=== PATIENT | female | born 1960 | race Hispanic/Latino ===

== ENCOUNTER 2020-03-06 03:41 | Emergency (ER) | payer SELFPAY ==
[2020-03-06] MEDS ORDERED: diphenhydrAMINE 25 MG CAP PO ONE (03:51)
[2020-03-06] MEDS ORDERED: FAMOTIDINE 20 MG TAB PO ONE (03:51)
[2020-03-06] MEDS ORDERED: dexAMETHasone 20 MG/5 ML VIAL IM ONE (03:51)
[2020-03-06 03:52] VITALS: BP 157/65
--- NOTE | 2020-03-06 04:03 | Emergency Department Report ---
ED General Adult HPI - General Chief complaint: Skin Rash Stated complaint: ALLERGIC REACTION TO MEDS Time Seen by Provider: 03/06/20 03:51 Source: patient Mode of arrival: Ambulatory Limitations: No Limitations - History of Present Illness Initial comments: Patient is a 60-year-old female presents emergency room with complaints of a possible allergic reaction that began a couple hours prior to arrival. Patient states that she is currently on doxycycline for an abscess. She states that she was started on the medication on 02/28/2020. She states that tonight she began having itching to the chest and the neck. She states that she believes she may have a rash. She states that she also has a strange sensation in her throat but denies her throat closing. She denies any facial swelling. She states that she has some mild shortness of breath. She denies any difficulty swallowing. She is tolerating p.o. intake without difficulty. She denies any known medication allergies. She denies any antibiotic allergies that she is aware of. - Related Data Previous Rx's Medication Instructions Recorded Last Taken Type Famotidine [Pepcid] 40 mg PO QHS #10 tablet 03/06/20 Unknown Rx Fluconazole (Nf) [Diflucan TAB] 150 mg PO ONCE #1 tablet 03/06/20 Unknown Rx Prednisone [predniSONE 10 mg 10 mg PO .TAPER #1 tab.ds.pk 03/06/20 Unknown Rx (6-Day Pack, 21 Tabs)] diphenhydrAMINE [Benadryl CAP] 50 mg PO Q8HR PRN #12 capsule 03/06/20 Unknown Rx Allergies Allergy/AdvReac Type Severity Reaction Status Date / Time doxycycline Allergy Rash Verified 03/06/20 04:13 ED Review of Systems ROS: Stated complaint: ALLERGIC REACTION TO MEDS Other details as noted in HPI Comment: All other systems reviewed and negative ED Past Medical Hx - Past Medical History Previous Medical History?: Yes Hx Hypertension: Yes - Surgical History Past Surgical History?: No - Social History Smoking Status: Never Smoker Substance Use Type: None - Medications Home Medications: Home Medications Medication Instructions Recorded Confirmed Last Taken Type Famotidine [Pepcid] 40 mg PO QHS #10 tablet 03/06/20 Unknown Rx Fluconazole (Nf) [Diflucan TAB] 150 mg PO ONCE #1 tablet 03/06/20 Unknown Rx Prednisone [predniSONE 10 mg 10 mg PO .TAPER #1 tab.ds.pk 03/06/20 Unknown Rx (6-Day Pack, 21 Tabs)] diphenhydrAMINE [Benadryl CAP] 50 mg PO Q8HR PRN #12 capsule 03/06/20 Unknown Rx ED Physical Exam - General Limitations: No Limitations General appearance: alert, in no apparent distress - Head Head exam: Present: atraumatic, normocephalic - Eye Eye exam: Present: normal appearance - ENT ENT exam: Present: normal orophraynx, mucous membranes moist, other (no angioedema) - Respiratory Respiratory exam: Present: normal lung sounds bilaterally. Absent: respiratory distress, wheezes, rales, rhonchi, stridor, chest wall tenderness, accessory muscle use, decreased breath sounds, prolonged expiratory - Cardiovascular Cardiovascular Exam: Present: regular rate, normal rhythm, normal heart sounds. 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 Patient states that she is currently on doxycycline for an abscess. She states that she was started on the medication on 02/28/2020. She states that tonight she began having itching to the chest and the neck. She states that she believes she may have a rash. She states that she also has a strange sensation in her throat but denies her throat closing. She denies any facial swelling. She states that she has some mild shortness of breath. She denies any difficulty swallowing. She is tolerating p.o. intake without difficulty. She denies any known medication allergies. She denies any antibiotic allergies that she is aware of. Vitals are stable. On exam no signs of angioedema or anaphylaxis, no signs of significant urticaria, no stridor or wheezing. Patient given dexamethasone IM, Benadryl and Pepcid p.o. Patient was feeling much better and ready to go home, patient was observed in the emergency department without any further complications. No signs of SJS on exam. 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 Patient is already completed a one week course of further antibiotic therapy, is no signs of cellulitis, abscess, infection on exam. Patient is given a prescription for Benadryl, Pepcid, prednisone. Advised patient Please take medication as prescribed. Increase your water intake. Please add doxycycline to your allergy list. Return to emergency room for any new or worsening symptoms. Patient is requesting a prescription for Diflucan due to a yeast infection after completing a course of antibiotics Critical care attestation.: If time is entered above; I have spent that time in minutes in the direct care of this critically ill patient, excluding procedure time. ED Disposition Clinical Impression: Allergic reaction Qualifiers: Encounter type: initial encounter Qualified Code(s): T78.40XA - Allergy, unspecified, initial encounter Disposition: TO HOME OR SELFCARE Is pt being admited?: No Does the pt Need Aspirin: No Condition: Stable Instructions: Allergies, Adult Additional Instructions: Please take medication as prescribed. Increase your water intake. Please add doxycycline to your allergy list. Return to emergency room for any new or worsening symptoms. Prescriptions: Famotidine [Pepcid] 40 mg PO QHS #10 tablet diphenhydrAMINE [Benadryl CAP] 50 mg PO Q8HR PRN #12 capsule PRN Reason: itching Fluconazole (Nf) [Diflucan TAB] 150 mg PO ONCE #1 tablet Prednisone [predniSONE 10 mg (6-Day Pack, 21 Tabs)] 10 mg PO .TAPER #1 tab.ds.pk Referrals: your, primary care doctor [Other] - 2-3 Days Time of Disposition: 05:07 Print Language: MOLDOVAN
== END 2020-03-06 05:32 | disposition home or self-care (01) ==
LOC: ED 03:41
DX: I10 Essential (primary) hypertension (principal); R06.02 Shortness of breath; T36.4X5A Adverse effect of tetracyclines, initial encounter; Z79.899 Other long term (current) drug therapy; Y92.89 Other specified places as the place of occurrence of the external cause
CPT/HCPCS: 96372; 99282; J1100